=== PATIENT | female | born 1985 | race Caucasian/White ===

== ENCOUNTER 2017-06-04 21:36 | Emergency (ER) | payer OTHER, SELFPAY ==
[2017-06-04] MEDS ORDERED: HYDROcodone/Acetaminophen 5/325 mg Tablet ONE (21:56)
[2017-06-04] MEDS ORDERED: Ketorolac Tromethamine 60 MG/2 ML VIAL ONE (21:56)
[2017-06-04] MEDS ORDERED: Orphenadrine Citrate 60 MG/2 ML VIAL ONE (21:56)
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
== END 2017-06-04 22:40 | disposition home or self-care (01) ==
LOC: MADERS 21:36
DX: S16.1XXA Strain of muscle, fascia and tendon at neck level, initial encounter (principal); S80.02XA Contusion of left knee, initial encounter; V49.9XXA Car occupant (driver) (passenger) injured in unspecified traffic accident, initial encounter
CPT/HCPCS: 72050; 96372; J1885; J2360

== ENCOUNTER 2020-02-25 15:08 | Emergency (ER) | payer SELFPAY ==
[2020-02-25] MEDS ORDERED: Midazolam HCl 2 mg/2 ml Vial ONE (15:28)
[2020-02-25] MEDS ORDERED: Ketamine 50 MG/ML (10ML VIAL) ONE (15:28)
[2020-02-25] MEDS ORDERED: Ondansetron PF 4 MG/2 ML Vial ONE (15:43)
[2020-02-25] MEDS ORDERED: Naloxone HCl 2 mg/2 ml Syringe ONE (15:51)
--- NOTE | 2020-02-25 15:57 | RAD ---
RIGHT ANKLE THREE VIEW: 02/25/20 HISTORY: Pain. COMPARISON: None. FINDINGS: There is a trimalleolar fracture with distal fibular fracture with syndesmosis, transversely oriented , distracted medial malleolar fracture, as well as a coronally oriented posterior malleolar fracture. There is lateral talar shift as well as valgus angulation. IMPRESSION: Displaced trimalleolar fracture. POS: [facility]
--- NOTE | 2020-02-25 16:22 | RAD ---
Exam: XR Ankle Rt 3 View STANDARD HISTORY: Post reduction right ankle COMPARISON: 02/25/2020 at 1525 hours FINDINGS: Splint material now overlies the right ankle. There has been improvement in alignment of the tibiotal ar dislocation, but there is mild persistent widening of the more medial aspect of the tibiotalar joint. Fractures involving the medial malleolus and distal fibula are again seen, but there has also been improvement in alignment of the fracture fragments compared to prior study. No other interval change. Subcutaneous soft tissue swelling is again seen about the ankle. IMPRESSION: Improvement in alignment of the fractures and dislocation right ankle. Mild widening of the medial as pect tibiotalar joint is present. Fractures of the distal fibula and medial malleolus are again noted.
== END 2020-02-25 17:48 | disposition short-term general hospital (02) ==
LOC: MADERS 15:08
DX: S82.851A Displaced trimalleolar fracture of right lower leg, initial encounter for closed fracture (principal); X58.XXXA Exposure to other specified factors, initial encounter
CPT/HCPCS: 27762; 96374; 96375; 99152; 99153; J2250; J2310; J2405

== ENCOUNTER 2022-02-06 10:32 | Outpatient (CLI) | payer OTHER ==
[2022-02-06 11:41] LABS: #Basophils 0.2 thou/uL (0.0-0.2); #Eosinphils 0.7 thou/uL (0.0-0.7); #Lymphocytes 2.6 thou/uL (1.20-3.40); #Monocytes 0.6 thou/uL (0.11-0.59); #Neutrophils 5.6 thou/uL (1.40-6.50); %Basophils 2.3 % (0.0-1.0); %Eosinophils 6.8 % (0.0-10.0); %Lymphocytes 26.5 % (21.0-51.0); %Monocytes 6.4 % (0.0-10.0); Hemoglobin 14.8 g/dL (12.0-16.0); Mean Corpuscular HGB CONC 31.9 g/dL (32.0-36.0); Mean Corpuscular Hemoglobin 26.5 pg (27.0-31.0); Mean Corpuscular Volume 83.3 fL (78.0-98.0); Mean Platelet Volume 8.6 fL (7.4-10.4); Platelet Count 312 thou/uL (130-400); RBC Distribution Width 11.8 % (11.5-14.5); Red Blood Cell (RBC) Count 5.58 mill/uL (4.20-5.40); White Blood Cell (WBC) Count 9.7 thou/uL (4.8-10.8)
[2022-02-06 12:04] LABS: ALT (SGPT) 18 U/L (8-55); AST (SGOT) 14 U/L (5-34); Albumin 4.4 g/dL (3.5-5.0); Alkaline Phosphatase 78 U/L (40-110); Anion Gap 15 mmol/L (10-20); BUN (Urea Nitrogen) 13 mg/dL (7.0-18.7); Bilirubin, Total 0.6 mg/dL (0.2-1.2); Calc. Creatinine Clearance 0 mL/min (70-130); Calcium 10.1 mg/dL (7.8-10.44); Carbon Dioxide 24 mmol/L (22-29); Cardiac Risk 3.6 (Less than 4.5); Chloride 103 mmol/L (98-107); Cholesterol 134 mg/dl (< 200 Desired); Globulin 3.7 g/dL (2.4-3.5); Glucose 94 mg/dL (70-105); HDL Cholesterol 37 mg/dL (>60 Neg Risk); LDL Cholesterol, Calculated 74 mg/dL; Potassium 3.8 mmol/L (3.5-5.1); Protein, Total 8.1 g/dL (6.0-8.3); Sodium 138 mmol/L (136-145); Triglycerides 113 mg/dL (Less than 150)
[2022-02-06 15:25] LABS: Thyroid Stimulating Hormone 3.7475 uIU/mL (0.35-4.94)
[2022-02-06 16:15] LABS: Hemoglobin A1c 4.6 % (4.0-6.0)
[2022-02-06 16:20] LABS: Iron 93 ug/dL (50-170)
[2022-02-06 16:40] LABS: Vitamin D, 25 Hydroxy 25.3 ng/ml (> 30.0)
[2022-02-06 16:45] LABS: Ferritin 33.61 ng/mL (10-291); Free T4 (Free Thyroxine) 0.92 ng/dL (0.70-1.48)
[2022-02-06 17:21] LABS: Vitamin B12 Greater than 2000 pg/mL (211-911)
[2022-02-07 10:55] LABS: Ref Lab Test Ordered H PYLORI IgG; Reference Lab Name LABCORP
== END 2022-02-06 10:33 | disposition home or self-care (01) ==
LOC: MADLAB 10:32
PROVIDERS: ATTEND Family Medicine
DX: Z01.818 Encounter for other preprocedural examination (principal)
CPT/HCPCS: 71046; 80053; 80061; 82306; 82607; 82728; 83036; 83540; 84425; 84439; 84443; 84481; 85025; 93005; 93010